=== PATIENT | male | born 1950 | race Caucasian/White ===

== ENCOUNTER 2019-04-18 10:50 | Inpatient (IN) | payer MEDICARE ==
[~2019-04-18] VITALS: Ht 180.3 cm; Wt 82.5 kg
[~2019-04-18 10:50] MED LIST: ATIVAN1 MG PO; NORCO 5-325 TA1 EACH PO; ZOFRAN ODT4 MG PO
[2019-04-18 10:55] VITALS: BP 150/83
[2019-04-18] MEDS ORDERED: CLONAZEPAM 0.50.5 M1 PO (10:57)
[2019-04-18 11:37] LABS: ABSOLUTE BASOPHILS 0.1 thou/uL (0.0-0.2); ABSOLUTE LYMPHOCYTES 1.5 thou/uL (0.8-5.3); ABSOLUTE MONOCYTES 0.7 thou/uL (0.0-1.2); ABSOLUTE NEUTROPHILS 7.3 thou/uL (1.6-8.1); BASOPHILS 0.8 %; EOSINOPHILS 0.2 %; HEMOGLOBIN 14.7 gm/dL (14.0-18.0); LYMPHOCYTES 15.5 %; MCHC 34.1 g/dL (28.0-37.0); MCV 87.8 fL (80.0-100.0); MONOCYTES 7.3 %; MPV 8.5 fl. (7.2-11.1); NUCLEATED RBCS 0 /100WBC; PLATELET COUNT* 253 thou/uL (150-400); POLYS 76.2 %; RBC 4.89 mil/uL (4.50-6.00); RDW-CV 13.5 % (10.5-14.5); WBC 9.6 thou/uL (4.0-11.0)
[2019-04-18 11:41] LABS: CALCIUM 8.8 mg/dL (8.5-10.1); CREATININE 0.9 mg/dL (0.6-1.3); POTASSIUM 4.1 mmol/L (3.5-5.1)
[2019-04-18 11:43] LABS: PROTIME 10.1 Seconds (9.20-11.50)
[2019-04-18 11:52] LABS: ALBUMIN 3.1 g/dL (3.4-5.0); TOTAL BILIRUBIN 0.2 mg/dL (<0.1-1.0); TOTAL PROTEIN 7.3 g/dL (6.4-8.2)
[2019-04-18 16:00] VITALS: BP 139/80
--- NOTE | 2019-04-18 16:36 | 2DMMODE ---
[place] [id number] 2 D/M-MODE ECHOCARDIOGRAM Name: ALONZO العراقي Room: [address] IN [facility]#: [id number] Admission: 04/18/19 Attend Phys: Isaias Lewis, Discharge: Date of : 46 Date of Service: 04/18/19 1634 Report #: [id number] THIS REPORT FOR: cc: Sarah Anaya NP, Tammy NP Liston, Michael J. MD [facility] ~ APPROVED REPORT Study performed: 04/18/2019 15:50:38 EXAM: Comprehensive 2D, Doppler, and color-flow Echocardiogram Patient Location: In-Patient Room #: er Status: routine BSA: 2.02 HR: 53 bpm BP: 136/70 mmHg Rhythm: NSR Other Information Study Quality: Good Indications Chest Pain 2D Dimensions IVSd: 9.02 (7-11mm) LVOT Diam: 21.52 (18-24mm) LVDd: 46.60 mm PWd: 9.55 (7-11mm) Ascending Ao: 34.70 (22-36mm) LVDs: 30.63 (25-40mm) Aortic Root: 39.71 mm M-Mode Dimensions IVSd: 7.82 (7-11mm) LVDd: 54.40 (40-56mm) PWd: 7.82 (7-11mm) IVSs: 10.67 mm FS(%): 19.61 % LVDs: 43.73 (20-38mm) PWs: 12.09 mm LVEF(%): 39.86 (>50%) Volumes Left Atrial Volume (Systole) LA ESV Index: 37.20 mL/m2 [place] [id number] 2 D/M-MODE ECHOCARDIOGRAM Name: ALONZO العراقي Room: [address] IN .R.#: [id number] Admission: 04/18/19 Attend Phys: Isaias Lewis, Discharge: Date of : 46 Date of Service: 04/18/19 1634 Report #: [id number] Aortic Valve AoV Peak Quirino.: 1.07 m/s AO Peak Gr.: 4.57 mmHg LVOT Max P.64 mmHg AO Mean Gr.: 2.59 mmHg LVOT Mean P.37 mmHg LVOT Max V: 0.95 m/s AO V2 VTI: 24.02 cm LVOT Mean V: 0.52 m/s JR (VTI): 3.36 cm2 LVOT V1 VTI: 22.18 cm Mitral Valve E/A Ratio: 1.17 MV Decel. Time: 236.20 ms MV E Max Quirino.: 0.64 m/s MV PHT: 68.50 ms MVA (PHT): 3.21 cm2 TDI E/Lateral E': 7.11 E/Medial E': 8.00 Medial E' Quirino.: 0.08 m/s Lateral E' Quirino.: 0.09 m/s Pulmonary Valve PV Peak Quirino.: 0.69 m/s PV Peak Gr.: 1.89 mmHg Left Ventricle The left ventricle is normal size. There appears to be mild global hypokinesis that is more pronounced in the apex and mid to distal septum and anteroseptal castro. There is normal left ventricular wall thickness. Left ventricular systolic function is moderately decreased. LVEF is 40-45%. Transmitral Doppler flow pattern suggests impaired LV relaxation. Right Ventricle The right ventricle is normal size. The right ventricular systolic function is normal. Atria Left atrium is mildly dilated. The right atrium size is normal. Aortic Valve The aortic valve is normal in structure. Trace aortic regurgitation. There is no aortic valvular stenosis. Mitral Valve The mitral valve is normal in structure. [place] [id number] 2 D/M-MODE ECHOCARDIOGRAM Name: ALONZO العراقي Room: [address] IN M.R.#: [id number] Admission: 04/18/19 Attend Phys: Isaias Lewis, Discharge: Date of : 46 Date of Service: 04/18/19 1634 Report #: [id number] No evidence of mitral valve stenosis. Tricuspid Valve The tricuspid valve is normal in structure. Trace tricuspid regurgitation. Pulmonic Valve The pulmonary valve is normal in structure. Mild pulmonic regurgitation. Great Vessels The aortic root is normal in size. IVC is normal in size and collapses >50% with inspiration. Pericardium There is no pericardial effusion. <Conclusion> The left ventricle is normal size. There is normal left ventricular wall thickness. Left ventricular systolic function is moderately decreased. LVEF is 40-45%. Transmitral Doppler flow pattern suggests impaired LV relaxation. There appears to be mild global hypokinesis that is more pronounced in the apex and mid to distal septum and anteroseptal castro. Left atrium is mildly dilated. Trace aortic regurgitation. Trace mitral regurgitation. Trace tricuspid regurgitation. IVC is normal in size and collapses >50% with inspiration. <ELECTRONICALLY SIGNED> By: Alonzo Levy MD, FACC 04/18/19 1634 1634 1634 Alonzo Levy MD, FACC /INF
[2019-04-18] MEDS ORDERED: CELEXA20 MG PO (16:37)
[2019-04-18 17:23] VITALS: BP 143/73
[2019-04-18] MEDS ORDERED: FISH OIL 1,0001 EAC9 PO (17:28)
[2019-04-18] MEDS ORDERED: SUPER THERAVIT1 EACH PO (17:29)
[2019-04-18] MEDS ORDERED: VITAMIN D310 MC2 PO (17:29)
[2019-04-18] MEDS ORDERED: CALCIUM500 MG PO (17:30)
[2019-04-18] MEDS ORDERED: VITAMIN C1000 MG PO (17:30)
--- NOTE | 2019-04-18 19:01 | NUR ---
PT ARRIVED TO ROOM 201 AT APPROX 1630 FROM ER. PT A/O X4, UP AD ABBY, RA, VSS, SB ON THE MONITOR. ADMISSION DONE CHARTED. PT DENIES SIGNIFICANT CHEST PAIN, STATES IT "GOT BETTER SINCE THE NITRO", JUST C/O SORENESS IN LEFT FLANK AREA, "I FELL OFF A LADDER ABOUT A MONTH AGO AND HIT THAT SPOT". PT CONCERNED ABOUT GETTING HOME MEDS AT THE TIMES HE NORMALLY TAKES THEM. MEDS WERE REVIEWED AND ADJUSTED. DISCUSSED PLAN OF CARE WITH PT AND SON, QUESTIONS ANSWERED. SIGIFREDO STARK, CALLED RESULTS TO DR SOLORIO, RECEIVED NEW ORDERES.
[2019-04-18 20:00] VITALS: BP 118/71
[2019-04-19] VITALS (18 sets, daily range): BP systolic 104–155; BP diastolic 60–90
[2019-04-19 03:56] LABS: HEMATOCRIT 41.3 % (42.0-52.0); MCH 29.7 pg (26.0-34.0); MCV 87.3 fL (80.0-100.0); MPV 8.4 fl. (7.2-11.1); RBC 4.73 mil/uL (4.50-6.00); RDW-CV 13.8 % (10.5-14.5); WBC 7.2 thou/uL (4.0-11.0)
[2019-04-19 04:29] LABS: ANION GAP 5 mmol/L (7-16); BUN 11 mg/dL (7-18); CALCIUM 8.5 mg/dL (8.5-10.1); CHLORIDE 104 mmol/L (98-107); CHOLESTEROL 228 mg/dL (<200); CO2 33 mmol/L (21-32); GLUCOSE 95 mg/dL (70-99); HDL CHOLESTEROL 30 mg/dL (>40); LDL CHOLESTEROL 171 mg/dL (<100); MAGNESIUM 1.9 mg/dL (1.8-2.4); POTASSIUM 3.9 mmol/L (3.5-5.1); SODIUM 142 mmol/L (136-145); TC:HDL 7.6 Ratio (Not establshd); TRIGLYCERIDE 138 mg/dL (<150); VLDL 28 mg/dL (<40)
[2019-04-19 05:00] LABS: SERUM ASSESSMENT Clear
[2019-04-19 05:03] LABS: TROPONIN-I LEVEL 7.28 ng/mL (<0.06)
--- NOTE | 2019-04-19 05:47 | NUR ---
Shift uneventful. Pt is medically stable at this time. Pt is aox4, running sinus bradycardia on telemetry, breathing is even and unlabored on room air.
--- NOTE | 2019-04-19 12:30 | NUR ---
ASSUME CARE OF PT. PT BACK FROM REGIONAL GEODETIC ADVISOR. RADIAL CLOSURE DEVICE IN PLACE. INSTRUCTED ON RIGHT ARM IMMOBILITY. PT VERBALIZED UNDERSTANDING. PT GIVEN BOX LUNCH AND MEDS. NSR ON MONITOR. SON AT AND UPDATED ON PLAN OF CARE
--- NOTE | 2019-04-19 12:50 | EKG ---
[place] [address] ELECTROCARDIOGRAM REPORT Name: ANGELITA العراقي Room: [address] ADM IN .R.#: [id number] Admission: 04/18/19 Attend Phys: Isaias Lewis, Discharge: Date of : 46 Date of Service: 04/18/19 1053 Report #: [id number] THIS REPORT FOR: //name// [facility] ED Test Date: 2019-04-18 Test Time: 10:53:31 Pat Name: ANGELITA العراقي Department: Room: [facility] Gender: M Acid Recovery Operator: MARY LOU : 1950 Requested By: Gil Mckinley Order Number: [id number] MD: Calvin Harry Measurements Intervals [place] Rate: 50 P: 24 UT: 157 QRS: 32 QRSD: 95 T: 30 QT: 428 QTc: 391 Interpretive Statements Sinus rhythm Atrial premature complex Borderline ST depression, diffuse leads Baseline wander in lead(s) V5 Compared to ECG 03/11/2015 01:31:26 Atrial premature complex(es) now present ST (T wave) deviation now present Electronically Signed On 04-19-2019 12:49:36 FARM EQUIPMENT SERVICE TECHNICIAN by Calvin Harry [email or web address] <ELECTRONICALLY SIGNED> By: Calvin Harry MD, FACC 04/19/19 1249 1053 1053 Calvin Harry MD, [facility] /EPI
--- NOTE | 2019-04-19 12:52 | EKG ---
[place] [address] ELECTROCARDIOGRAM REPORT Name: ANGELITA العراقي Room: [address] ADM IN ..#: [id number] Admission: 04/18/19 Attend Phys: Isaias Lewis, Discharge: Date of : 46 Date of Service: 04/18/19 1214 Report #: [id number] THIS REPORT FOR: //name// [facility] ED Test Date: 2019-04-18 Test Time: 12:14:19 Pat Name: ANGELITA العراقي Department: Room: [facility] Gender: M Site Leader: JAYA : 1950 Requested By: Gil Mckinley Order Number: [id number] MD: Calvin Harry Measurements Intervals [place] Rate: 51 P: 22 CT: 172 QRS: 25 QRSD: 88 T: 19 QT: 456 QTc: 420 Interpretive Statements Sinus bradycardia Baseline wander in lead(s) V1,V2 Electronically Signed On 04-19-2019 12:51:33 GYMNASTICS COACH OR INSTRUCTOR by Calvin Harry [email or web address] <ELECTRONICALLY SIGNED> By: Calvin Harry MD, [facility] 04/19/19 1251 1214 121 Calvin Harry MD, [facility] /EPI
--- NOTE | 2019-04-19 12:59 | EKG ---
[place] [address] ELECTROCARDIOGRAM REPORT Name: ANGELITA العراقي Room: [address] IN [facility].#: [id number] Admission: 04/18/19 Attend Phys: Isaias Lewis, Discharge: Date of : 46 Date of Service: 04/19/19 0757 Report #: [id number] THIS REPORT FOR: //name// [facility] Test Date: 2019-04-19 Test Time: 07:57:12 Pat Name: ANGELITA العراقي Department: Room: [facility] Gender: M Clinical Account Specialist: [id number] : 1950 Requested By: Calvin Harry Order Number: [id number] Yasmine MD: Calvin Harry Measurements Intervals [place] Rate: 69 P: 13 MN: 158 QRS: 18 QRSD: 94 T: 16 QT: 459 QTc: 492 Interpretive Statements Sinus rhythm artifact noted Electronically Signed On 04-19-2019 12:58:35 ACID CONDENSER by Calvin Harry [email or web address] <ELECTRONICALLY SIGNED> By: Calvin Harry MD, [facility] 04/19/19 1258 0757 075 Calvin Harry MD, FACC /EPI
--- NOTE | 2019-04-19 19:04 | NUR ---
PT HAD CARDIAC CATH THIS AM. NO POST PROCEDURE BLEEDING OR CHEST PAIN. UP IN ROOM WITH STEADY GAIT. IVF INFUSED. TOLERATING PO WELL. PLAN FOR REPEAT CARDIAC CATH ON SUNDAY
[2019-04-20] VITALS: BP 122/72
[2019-04-20 04:00] VITALS: BP 102/67
[2019-04-20 06:06] LABS: HEMATOCRIT 41.1 % (42.0-52.0); HEMOGLOBIN 14.2 gm/dL (14.0-18.0); MCHC 34.5 g/dL (28.0-37.0); MCV 86.8 fL (80.0-100.0); MPV 8.6 fl. (7.2-11.1); RBC 4.74 mil/uL (4.50-6.00); RDW-CV 13.4 % (10.5-14.5); WBC 7.5 thou/uL (4.0-11.0)
--- NOTE | 2019-04-20 06:19 | NUR ---
Shift uneventful. Pt is medically stable at this time. Pt is aox4, running s-chandrika on telemetry, respirations are even and unlabored on room air.
[2019-04-20 07:11] LABS: CALCIUM 8.5 mg/dL (8.5-10.1); CREATININE 0.9 mg/dL (0.6-1.3); POTASSIUM 3.7 mmol/L (3.5-5.1)
[2019-04-20 07:38] LABS: TROPONIN-I LEVEL 4.93 ng/mL (<0.06)
[2019-04-20 08:00] VITALS: BP 160/70
--- NOTE | 2019-04-20 10:48 | CON ---
[address] [address] CONSULTATION Name: ANGELITA العراقي Room: [address] IN ..#: [id number] Admission: 04/18/19 Attend Phys: Isaias Lewis MD Discharge: Date of : 46 Report #: [id number] THIS REPORT FOR: //name// cc: Sarah Anaya NP, Tammy NP ~ THIS REPORT FOR: //name// CC: Isaias Anaya NP DATE OF SERVICE: 04/18/2019 CARDIOLOGY CONSULTATION HISTORY OF PRESENT ILLNESS: The patient is a 68-year-old single white male who I was asked to see in the Emergency Room today after he complained of shoulder pain. The patient has no previous history of heart disease. He apparently had a stress test years ago. He stays very active, working out on a stationary bicycle every day. Denies exertional chest tightness, dyspnea on exertion, palpitations, syncope, or peripheral edema. He was doing well until last night, he woken up and felt a discomfort in his back, bilaterally in his shoulder blade area. He felt some shoulder discomfort. Denied any recent trauma, falling. He denied any swelling of his arms. He denied being able to move the arms. He has had no fever or cough. He does wear a back brace. He denied any palpitations or syncope. PAST MEDICAL HISTORY: He has had elevated cholesterol. No history of hypertension, diabetes. He has a history of anxiety disorder. MEDICATIONS: His only medications include fish oil. He does take Ativan as needed and clonazepam. ALLERGIES: He has no known drug allergies. FAMILY HISTORY: Negative for heart disease. SOCIAL HISTORY: He is , lives by himself. He is retired from [employer]. Smokes less than half pack of cigarettes a day, has a history of alcohol abuse, quit 3 years ago. REVIEW OF SYSTEMS: He has had no history of stroke, asthma, peptic ulcer disease, liver disease, kidney disease or cancer. He has a history of anxiety disorder. No chronic skin condition. PHYSICAL EXAMINATION: [place] [address] CONSULTATION Name: ANGELITA العراقي Diana Room: [address]#: [id number] Admission: 04/18/19 Attend Phys: Isaias Lewis MD Discharge: Date of : 46 Report #: [id number] GENERAL: Revealed an elderly male, lying in bed, he appeared in no distress. VITAL SIGNS: He had a blood pressure of 140/70, pulse is 50. He was afebrile. HEENT: He was anicteric. Conjunctivae are pink. Mucous membranes moist. NECK: Veins nondistended. No carotid bruits. CHEST: Clear to auscultation. CARDIOVASCULAR: Regular, bradycardia, no significant murmur. ABDOMEN: Soft. EXTREMITIES: Had no edema. Dorsalis pedis pulse 1+ bilaterally. SKIN: Cool and dry. NEUROLOGIC: Nonfocal. RADIOLOGICAL DATA: ECG showed a sinus bradycardia, sinus arrhythmia, nonspecific ST and T-wave changes. His workup in the Emergency Room today, lab work: Sodium 139, creatinine 0.9. His troponin is elevated at 0.35. White blood cell count 9.6, hemoglobin 14.7. IMPRESSION AND RECOMMENDATIONS: 1. Shoulder pain. Atypical for angina. Suspect noncardiac. No EKG changes noted. 2. Borderline elevated troponin. I will obtain serial enzymes. 3. Hyperlipidemia. The patient is on fish oil. 4. Bradycardia. I would avoid beta-blockers, asymptomatic. 5. History of anxiety disorder. 6. Previous tobacco abuse. 7. History of alcohol abuse. <ELECTRONICALLY SIGNED> By: Calvin Harry MD, FACC 04/20/19 1048 1226 [id number] Harry MD, FACC /nt
[2019-04-20 11:59] VITALS: BP 96/61
--- NOTE | 2019-04-20 12:11 | CARD ---
[facility] [address] [place] [address] CARDIAC CATH REPORT Name: ANGELITA العراقي Room: [address] IN [facility]#: [id number] Admission: 04/18/19 Attend Phys: Isaias Lewis MD Discharge: Date of : 46 Report #: [id number] THIS REPORT FOR: //name// cc: Sarah Anaya NP, Tammy NP ~ THIS REPORT FOR: //name// APPROVED REPORT Study performed: 04/19/2019 08:43:02 Patient Details Patient Status: In-Patient Room #: 201 The patient is a 68 year-old male Event Personnel Calvin Harry Commercial Credit Reviewer, Lori Juárez Hydraulic Rubbish Compactor Mechanic, Marjorie Reyes RN Monitor, Annmarie Maldonado RTR Scrub Procedures Performed Art Access - R radial artery Left Heart Cath w/or w/o Coronaries CITLALLI Place w/wo Plasty Single LAD CITLALLI Place w/wo Plasty Single RCA Hemostasis with Hemoband Indication Non-STEMI , Chest pain Risk Factors Peripheral Vascular Disease, Hypercholesterolemia, Tobacco History () Admission/Lab Medications/Medications given during procedure Glycoprotein IllbIlla Inhibitors, Heparin Low Molecular Weight, Aggrastat 8.4 ml, Effient PO 60 mg Procedure Narrative The patient was brought electively to the Cardiac Catheterization Laboratory and was prepped and draped in a sterile manner. The right wrist was infiltrated with 2% Lidocaine subcutaneous anesthesia. A Slender Glidesheath sheath was inserted into the right radial artery. Coronary angiography was performed using coronary diagnostic catheters. The right coronary system was accessed and visualized with a JR4 6fr catheter. The left coronary [place] [address] CARDIAC CATH REPORT Name: ANGELITA العراقي Room: [address]#: [id number] Admission: 04/18/19 Attend Phys: Isaias Lewis MD Discharge: Date of : 46 Report #: [id number] visualized with a JL 3.5 6fr catheter. The left ventricle was accessed and visualized with a JR4 6fr catheter. Left ventricular/Aortic Valve gradient assessed via catheter pullback and there was no gradient. Closure device was deployed with a 6 Fr vascband. The patient tolerated the procedure well and there were no complications associated with the procedure. There was no hematoma. Intraoperative Conscious Sedation Sedation start time: 10:35 Case end Time: 12:11 Fentanyl 50 mcg Versed 2 mg Fluoro Time: 14.5 minutes Dose: DAP [id number] cGycm2 2420 mGy Contrast Type and Amount: Omnipaque 300 ml Coronary Angiography The patient's coronary anatomy is right dominant. Diagnostic Cath Left Main 0% stenosis LAD 70% proximal, 70% mid sequential lesions, and 90% distal stenosis with thrombus. 60% apical stenosis. Diagonal 1 small vessel with 99% ostial stenosis Circumflex 80% distal stenosis Right Coronary 50% proximal stenosis and 99% mid stenosis with thrombus Left Ventriculography Left Ventriculography was not performed. Hemodynamics The aortic pressure is 100/59 mmHg with a mean of 73 mmHg. The left ventricular pressure is 104/10 mmHg with a mean of mmHg. The left ventricular end diastolic pressure is 15 mmHg. There was no gradient across the aortic valve upon pullback. Pullback from the left ventricle to the aorta revealed no gradient across the aortic valve. PCI Technique Lesion Anticoagulation was achieved with lovenox. bolus of iv aggrastat given Percutaneous coronary intervention was performed on the mid right coronary artery. The lesion stenosis prior to intervention was 99% with ANDREW 3 flow. A 6FR JCR 4 100CM Guide Catheter was used to engage the rca ostium. A IG: BMW 190cm [place] [address] CARDIAC CATH REPORT Name: ANGELITA العراقي Room: [address]#: [id number] Admission: 04/18/19 Attend Phys: Isaias Lewis MD Discharge: Date of : 46 Report #: [id number] used to cross the lesion. BALLOON DILATION A Balloon catheter Trek RX 3.0 X 12 was inserted and inflated up to 10.00atm for 13seconds. Repeat angiography revealed the following post-dilatation results: 50% stenosis. STENT DEPLOYMENT A drug-eluting stent 3.5 x 15 mm was inserted and inflated up to 13atm for 10seconds. Repeat angiography revealed the following post-stent deployment results: 0% stenosis. loss of RV branch was noted after placement of the stent Final angiography reveals 0 % stenosis with ANDREW 3 flow. PCI Technique Lesion 2 Percutaneous Coronary Intervention was performed on the mid left anterior descending artery segment. Percutaneous coronary intervention was performed on the proximal and mid left anterior descending artery segment. The lesion stenosis prior to intervention was 99% with ANDREW 3 flow. A 6F XB LAD 4.0 Guide Catheter was used to engage the lm ostium. A IG: BMW 190cm Interventional Guidewire was used to cross the lesion. Balloon Dilation A Balloon catheter Trek RX 2.5 X 12 was inserted and inflated up to 14.00atm for 15seconds. Repeat angiography revealed the following post-dilatation results: 50% stenosis. Additional Inflation: 12.00atm for 13seconds. Additional Inflation: 21.00atm for 18seconds. Stent Deployment A drug-eluting stent Kvng RX Stent 2.36E75ah was inserted and inflated up to 14.00atm for 15seconds. Repeat angiography revealed the following post-stent deployment results: 0% stenosis. Additional Inflation: 12.00atm for 13seconds. Additional Inflation: 13.00atm for 8seconds. A more proximal 3.5 x 22 mm drug eluting stent was placed in the more proximal lad with mimimal overlap between the stents to cover the long area of multiple stenoses in the mid lad. Inflated up to 12 shara. Final angiography reveals 0 % stenosis with ANDREW 3 flow. Conclusion 1. Sequential 70% stenosis in the proximal and mid and more distal 99% stenosis of the lad [address] [address] CARDIAC CATH REPORT Name: ANGELITA العراقي Room: M.201-P ADM IN M.R.#: [id number] Admission: 04/18/19 Attend Phys: Isaias Lewis MD Discharge: Date of : 46 Report #: [id number] 2. 99% stenosis of the mid rca with thrombus 3. 80% stenosis of the distal circumflex artery 4. successful placement of a drug eluting stent in the mid rca, and placement of 2 drug eluting stents in the proximal and mid lad Recommendations Consider stent of the circumflex artery at a later date Medications Administered Prasugrel <ELECTRONICALLY SIGNED> By: Calvin Harry MD, [facility] 04/20/19 1210 09 Dasuzanne Harry MD, FAC /INF
[2019-04-20 15:57] VITALS: BP 101/64
--- NOTE | 2019-04-20 18:00 | NUR ---
RECEIVED REPORT. ASSUMED CARE OF PT AROUND 0730. PT A&O X4. AM ASSESSMENT AND VITALS COMPLETED CHARTED. COAL CARRIER IN PLACE. MEDS PER EMAR. PT UP AD ABBY. PT TO HAVE LHC TOMORROW, NPO AT MIDNIGHT. DENIED PAIN OR DISCOMFORT THIS SHIFT. PT CURRENTLY WATCHING TV IN BED. CALL LIGHT IS WITHIN REACH. HOURLY ROUNDING PERFORMED. LOW FALL RISK PRECAUTIONS IN PLACE.
[2019-04-20 20:00] VITALS: BP 114/61
[2019-04-21] VITALS (15 sets, daily range): BP systolic 99–155; BP diastolic 57–86
--- NOTE | 2019-04-21 07:36 | NUR ---
Pt persistently hypertensive throughout shift. Hydralazine given x2 without improvement. Around 0300 pt reported increasing SOA. V/S were reassessed BP was in the 200/100s. Dr. Carrillo was paged. Onetime dose of clonidine was order and administered. On reassessment pt's BP had improved to 160/90s. Pt was switched from NC to NRB at 10L O2. Pt reported decreased SOA. Per Dr. Carrillo dialysis was contacted to expedite scheduled dialysis this AM. Pt is aox4 and running SR w/ PVCs on telemetry.
--- NOTE | 2019-04-21 07:44 | NUR ---
Shift uneventful. Pt is medically stable at this time. Pt is aox4, running s-chandrika on telemetry, respirations are even and unlabored.
--- NOTE | 2019-04-21 08:41 | NUR ---
ASSUMED CARE OF PT THIS AM AROUND 714- CITY JAILER IN PLACE ORDERED, TRACING SB- UPON ASSESSMENT PT NOTED TO BE RESTING IN BED, WATCHING TV- PT A&O X4- CONT OF B/B- UP AD-ABBY IN ROOM, STEADY GAIT NOTED- LCTA, RESP EVEN AND UN-LABORED- VSS, O2 SAT 94% ON RA- ABD SOFT/ROUND/NON-TENDER, BS X4 QUADS- LAST BM REPORTED X3 DAYS AGO- IV NOTED TO RIGHT AC INTACT, IVF INFUSSING PRESCIBED- PT CURRENTLY NPO PENDNG CATH THIS SHIFT- DENIES ANY C/O PAIN/DISCOMFORT AT THIS TIME- CALL LIGHT AND PERSONAL BELONGINGS WITH IN REACH- PT MAKES NEEDS KNOWN- ALL NEEDS MET AT THIS TIME-WCTM
--- NOTE | 2019-04-21 10:28 | EKG ---
[place] [address] ELECTROCARDIOGRAM REPORT Name: ANGELITA العراقي Room: [address] ADM IN .R.#: [id number] Admission: 04/18/19 Attend Phys: Isaias Lewis, Discharge: Date of : 46 Date of Service: 04/20/19 1348 Report #: [id number] THIS REPORT FOR: //name// [facility] Test Date: 2019-04-20 Test Time: 13:48:59 Pat Name: ANGELITA العراقي Department: Room: [address] Gender: M Hand Dry Cleaner: JOSE : 1950 Requested By: Calvin Harry Order Number: [id number] Yasmine MD: Calvin Harry Measurements Intervals [place] Rate: 55 P: 14 [place]: 167 QRS: -4 QRSD: 94 T: 6 QT: 490 QTc: 469 Interpretive Statements Sinus bradycardia Abnormal T, consider ischemia, anterior leads Compared to ECG 04/19/2019 07:57:12 T-wave abnormality now present Possible ischemia now present Electronically Signed On 04-21-2019 10:26:58 GEOSPATIAL INFORMATION TECHNOLOGIST by Calvin Harry [email or web address] <ELECTRONICALLY SIGNED> By: Calvin Harry MD, FAC 04/21/19 1026 1348 1348 Calvin Harry MD, [facility] /EPI
--- NOTE | 2019-04-21 11:21 | NUR ---
Pt is A&O. Resides at home alone. Independent. No DME. No hx of HH or SNF. Per , anticipate dc to home tomorrow. Pt to have 2nd cath today. Following.
--- NOTE | 2019-04-21 17:02 | CARD ---
[address] [address] CARDIAC CATH REPORT Name: ANGELITA العراقي Room: [address] IN [facility]#: [id number] Admission: 04/18/19 Attend Phys: Isaias eLwis MD Discharge: Date of : 46 Report #: [id number] THIS REPORT FOR: //name// cc: Sarah Anaya NP, Tammy NP ~ THIS REPORT FOR: //name// APPROVED REPORT Study performed: 04/21/2019 13:04:38 Patient Details Patient Status: In-Patient Room #: The patient is a 68 year-old male Event Personnel Marjorie Reyes RN Monitor, Kaylynn Engel RN RN, Sarabjit Dickinson RTR Kamryn Carter David Telecasting Technician Procedures Performed Art Access - R radial artery Left Heart Cath w/or w/o Coronaries C [facility] Place w/wo Plasty Single CIRC Hemostasis with Hemoband Indication Non-STEMI , Chest pain Risk Factors Dysplipidemia , Hypercholesterolemia, Coronary Artery Disease, Tobacco History () Previous Procedures/Diagnoses Previous PCI Admission/Lab Medications/Medications given during procedure Aspirin, Platelet Aff. Inhib., Heparin Unfract. Procedure Narrative The patient was brought electively to the Cardiac Catheterization Laboratory and was prepped and draped in a sterile manner. The right wrist was infiltrated with 1% Lidocaine subcutaneous anesthesia. A Slender Glidesheath sheath was inserted into the right radial artery. Coronary angiography was performed using coronary diagnostic catheters. The right coronary system was accessed and visualized with a Diagnostic catheter. The left coronary [place] [address] CARDIAC CATH REPORT Name: ANGELITA العراقي Room: [address]#: [id number] Admission: 04/18/19 Attend Phys: Isaias Lewis MD Discharge: Date of : 46 Report #: [id number] visualized with a Diagnostic catheter. The left ventricle was accessed and visualized with a Diagnostic catheter. Left ventricular/Aortic Valve gradient assessed via catheter pullback. Closure device was deployed with a 6 Fr vascband. The patient tolerated the procedure well and there were no complications associated with the procedure. There was no hematoma. Intraoperative Conscious Sedation Sedation start time: 2:52 Case end Time: 3:29 Versed 2.0 mg Fluoro Time: 5.8 minutes Dose: DAP 14164 cGycm2 1144 mGy Contrast Type and Amount: Omnipaque 150 ml Coronary Angiography The patient's coronary anatomy is right dominant. Diagnostic Cath Left Main 0% stenosis LAD stent in the proximal and mid lad had 0% stenosis Diagonal 1 small vessel with 90% ostial stenosis Circumflex distal 80% stenosis Right Coronary 40% proximal stenosis. Stent in mid rca had 0% stenosis Left Ventriculography The left ventricular ejection fraction is estimated to be 50-55%. Left ventricular wall motion abnormalities are not present. There is no mitral insufficiency. Hemodynamics The aortic pressure is 116/59 mmHg with a mean of 82 mmHg. The left ventricular pressure is 135/12 mmHg with a mean of mmHg. The left ventricular end diastolic pressure is 18 mmHg. There was no gradient across the aortic valve upon pullback. Pullback from the left ventricle to the aorta revealed no gradient across the aortic valve. PCI Technique Lesion Anticoagulation was achieved with Heparin. Patient was preloaded with Effient. Percutaneous coronary intervention was performed on the distal circumflex artery segment. The lesion stenosis prior to intervention was 80% with ANDREW 3 flow. A 6FR XB 3.5 SH Guide Catheter was used to engage the lm ostium. A IG: [facility] [address] [place] [address] CARDIAC CATH REPORT Name: ANGELITA العراقي Room: [address]#: [id number] Admission: 04/18/19 Attend Phys: Isaias Lewis MD Discharge: Date of : 46 Report #: [id number] Guidewire was used to cross the lesion. BALLOON DILATION A Balloon catheter Trek RX 2.25 X 8 was inserted and inflated up to 12.00atm for 11seconds. Repeat angiography revealed the following post-dilatation results: 40% stenosis. Additional Inflation: 9.00atm for 13seconds. STENT DEPLOYMENT A drug-eluting stent Deep Run RX Stent 2.5X12mm was inserted and inflated up to 12.00atm for 11seconds. Repeat angiography revealed the following post-stent deployment results: 0% stenosis. Additional Inflation: 9.00atm for 13seconds. Additional Inflation: 12.00atm for 18seconds. Final angiography reveals 0 % stenosis with ANDREW 3 flow. Conclusion 1. no restenosis of stents in the lad nor rca 2. 80% stenosis in the distal circumflex 3. LVEF 50-55% 4. successful placement of drug eluting stent in the distal circumflex artery Recommendations Smoking Cessation <ELECTRONICALLY SIGNED> By: Calvin Harry MD, FACC 04/21/19 170 00 1701Davifady Harry MD, FACC /INF
[2019-04-22 00:08] VITALS: BP 109/60
[2019-04-22 04:03] VITALS: BP 106/58
[2019-04-22 04:28] LABS: HEMATOCRIT 38.7 % (42.0-52.0); HEMOGLOBIN 13.2 gm/dL (14.0-18.0); MCH 29.8 pg (26.0-34.0); MCHC 34.1 g/dL (28.0-37.0); MCV 87.6 fL (80.0-100.0); RBC 4.41 mil/uL (4.50-6.00); RDW-CV 13.4 % (10.5-14.5); WBC 8.2 thou/uL (4.0-11.0)
[2019-04-22 05:02] LABS: CREATININE 0.8 mg/dL (0.6-1.3); MAGNESIUM 1.9 mg/dL (1.8-2.4); POTASSIUM 3.6 mmol/L (3.5-5.1)
[2019-04-22 05:05] LABS: TROPONIN-I LEVEL 6.42 ng/mL (<0.06)
--- NOTE | 2019-04-22 07:44 | NUR ---
Shift uneventful. Pt is medically stable at this time. Pt is aox4, running s-chandrika on telemetry, respirations are even and unlabored on room air.
[2019-04-22 08:15] VITALS: BP 151/107
[2019-04-22 08:17] VITALS: BP 151/107
[2019-04-22] MEDS ORDERED: LISINOPRIL2.5 M1 PO (08:47)
[2019-04-22] MEDS ORDERED: EFFIENT10 MG PO (08:47)
[2019-04-22] MEDS ORDERED: LIPITOR40 MG PO (08:48)
[2019-04-22] MEDS ORDERED: NITROGLYCERIN0.4 MG SUBLING (08:49)
[2019-04-22] MEDS ORDERED: ASA81BEC PO (08:49)
[2019-04-22] MEDS ORDERED: TYLENOL325 MG PO (08:50)
[2019-04-22 09:27] VITALS: BP 102/77
--- NOTE | 2019-04-22 11:05 | EKG ---
[place] [address] ELECTROCARDIOGRAM REPORT Name: ANGELITA العراقي Room: [address] ADM [place] ..#: [id number] Admission: 04/18/19 Attend Phys: Isaias Lewis, Discharge: Date of : 46 Date of Service: 04/21/19 1648 Report #: [id number] THIS REPORT FOR: //name// [facility] Test Date: 2019-04-21 Test Time: 16:48:37 Pat Name: ANGELITA العراقي Department: Room: [address] Gender: M Critical Care Unit Manager: HAYLEY : 1950 Requested By: Calvin Harry Order Number: [id number] Yasmine MD: Calvin Harry Measurements Intervals [place] Rate: 46 P: 40 [place]: 175 QRS: 25 QRSD: 94 T: 11 QT: 472 QTc: 413 Interpretive Statements Sinus bradycardia Nonspecific T abnrm, anterolateral leads Compared to ECG 04/20/2019 13:48:59 no change Electronically Signed On 04-22-2019 11:04:39 [employer] by Calvin Harry [email or web address] <ELECTRONICALLY SIGNED> By: Calvin Harry MD, [facility] 04/22/19 1104 1648 1648 Calvin Harry MD, [facility] /EPI
--- NOTE | 2019-04-22 11:12 | EKG ---
[place] [address] ELECTROCARDIOGRAM REPORT Name: ANGELITA العراقي Room: [address] IN ..#: [id number] Admission: 04/18/19 Attend Phys: Isaias Lewis, Discharge: Date of : 46 Date of Service: 04/22/19808 Report #: [id number] THIS REPORT FOR: //name// [facility] Test Date: 2019-04-22 Test Time: 08:09:29 Pat Name: ANGELITA العراقي Department: Room: [address] Gender: M Apn: : 1950 Requested By: Calvin Harry Order Number: [id number] Yasmine MD: Calvin Harry Measurements Intervals [place] Rate: 46 P: 32 [place]: 140 QRS: 3 QRSD: 92 T: 3 QT: 449 QTc: 393 Interpretive Statements Sinus bradycardia Borderline T wave abnormalities Electronically Signed On 04-22-2019 11:11:19 KILN [employer] HELPER by Calvin Harry [email or web address] <ELECTRONICALLY SIGNED> By: Calvin Harry MD, [facility] 04/22/19 1111 808 8 Calvin Harry MD, FACC /EPI
[2019-04-22 12:00] VITALS: BP 108/56
--- NOTE | 2019-04-22 12:57 | NUR ---
PT DISCHARGED HOME. COPY OF DISCHARGE PAPERWORK TO PT WITH EXPLAINATION. PT VERBALIZED UNDERSTANDING. PRESRIPTIONS GIVEN TO PT. IV ACCESS REMOVED.
== END 2019-04-22 13:10 | disposition home or self-care (01) | DRG 246 ==
LOC: M.ERS 10:50 → M.TBA-ER 12:17 → M.2W 12:17
PROVIDERS: Emergency Medicine; Internal Medicine Cardiovascular Disease; ADMIT Internal Medicine
DX: I21.4 Non-ST elevation (NSTEMI) myocardial infarction (principal); I50.43 Acute on chronic combined systolic (congestive) and diastolic (congestive) heart failure; E78.00 Pure hypercholesterolemia, unspecified; F17.210 Nicotine dependence, cigarettes, uncomplicated; I20.9 Angina pectoris, unspecified; E78.5 Hyperlipidemia, unspecified; I11.0 Hypertensive heart disease with heart failure; F41.1 Generalized anxiety disorder; R79.1 Abnormal coagulation profile; J44.9 Chronic obstructive pulmonary disease, unspecified; I73.9 Peripheral vascular disease, unspecified; K21.9 Gastro-esophageal reflux disease without esophagitis; Z79.899 Other long term (current) drug therapy; Z90.49 Acquired absence of other specified parts of digestive tract; Z79.01 Long term (current) use of anticoagulants; Z79.82 Long term (current) use of aspirin